=== PATIENT | male | born 1950 | race Caucasian/White ===

== ENCOUNTER 2021-07-11 14:41 | Inpatient (IN) | payer OTHER, SELFPAY ==
[~2021-07-11] VITALS: Ht 175.3 cm; Wt 86.2 kg
[2021-07-11 14:41] VITALS: BP_SYST 112
[2021-07-11 15:38] LABS: BASOPHILS % (AUTO) 0.7 % (0.0-2.0); HEMATOCRIT 44.7 % (36-54); HEMOGLOBIN 14.7 g/dL (14.0-18.0); LYMPHOCYTES # (AUTO) 0.2 K/uL (1.0-5.5); LYMPHOCYTES % (AUTO) 4.7 % (20.5-51.5); MEAN CORPUSCULAR HEMOGLOBIN 27 pg (27-31); MEAN CORPUSCULAR HGB CONC 33 % (32-36); MEAN CORPUSCULAR VOLUME 81 fL (79.0-98.0); MONOCYTES # (AUTO) 0.4 K/uL (0.0-1.0); MONOCYTES % (AUTO) 8.6 % (1.7-9.3); NEUTROPHILS # (AUTO) 4.4 K/uL (1.8-7.7); PLATELET COUNT (AUTO) 144 K/uL (130-430); RED BLOOD CELL COUNT(AUTO) 5.52 MIL/uL (4.2-6.2); RED CELL DISTRIBUTION WIDTH 14.6 % (9.0-15.0); WHITE BLOOD COUNT (AUTO) 5.1 K/uL (4.8-10.8)
[2021-07-11 16:02] LABS: ANION GAP 10 (5-15); CALCIUM 7.8 mg/dL (8.4-11.0); CHLORIDE 98 mmol/L (98-107); CREATININE 1.31 mg/dL (0.55-1.30); GLUCOSE 121 mg/dL (70-99); POTASSIUM 4.3 mmol/L (3.5-5.1); SODIUM SERUM 134 mmol/L (136-145); UREA NITROGEN, BLOOD 24 mg/dL (8-21)
[2021-07-11 16:07] LABS: ALANINE AMINOTRANSFERASE 93 U/L (12-78); ALBUMIN 2.7 g/dL (3.4-4.8); ASPARTATE AMINOTRANSFERASE 118 U/L (10-37); LIPASE 303 U/L (73-393); TOTAL BILIRUBIN 0.6 mg/dL (0.0-1.0)
[2021-07-11 16:08] LABS: ACETAMINOPHEN < 1 ug/mL (1-30); GFR AFRICAN AMERICAN 70 mL/min (>90)
[2021-07-11] MEDS ORDERED: cefTRIAXone 1 GM in D5W 50 ML IV ONE (16:15)
[2021-07-11] MEDS ORDERED: DOXYCYCLINE HYCLATE 100 MG in D5W 100 ML IV ONE (16:15)
[2021-07-11] MEDS ORDERED: cefTRIAXone 1 GM VIAL ONE (16:38)
[2021-07-11] MEDS ORDERED: DOXYCYCLINE HYCLATE 100 MG VIAL IV ONE (17:24)
[2021-07-11] MEDS ORDERED: DEXTROSE 50% JECT 50 ML DISP.SYRIN IVP PRN ×2 (22:30)
[2021-07-11] MEDS ORDERED: GLUCOSE (DEXTROSE) ORAL GEL -Adults PO PRN ×2 (22:30)
[2021-07-11] MEDS ORDERED: D5W 1,000 ML IV PRN ×2 (22:30)
[2021-07-11] MEDS ORDERED: HYDROcodone/ACETAMIN 10-325 MG TAB PO PRN (22:45)
[2021-07-11] MEDS ORDERED: HYDROcodone/ACETAMIN 5-325 MG TAB (NORCO/ VICODIN) PO PRN (22:45)
[2021-07-11] MEDS ORDERED: ACETAMINOPHEN 325 MG TABLET PO PRN (22:45)
[2021-07-11] MEDS ORDERED: LORazepam 2 MG/ML VIAL IVP PRN (22:45)
[2021-07-11] MEDS ORDERED: NALOXONE HCL 0.4 MG/ML AMP (NARCAN) IVP PRN ×2 (22:45)
[2021-07-11] MEDS ORDERED: AZITHROMYCIN 500 MG in NS 250 ML IV SCH ×2 (22:45→23:01)
[2021-07-11] MEDS ORDERED: ONDANSETRON HCL 4 MG/2 ML VIAL IVP PRN (22:45)
[2021-07-11] MEDS ORDERED: ALBUTEROL SULFATE 0.083% 2.5 MG/3 ML VIAL.NEB INH SCH (23:00)
[2021-07-11] MEDS ORDERED: IPRATROPIUM BROM 0.5 MG/2.5 ML VIAL.NEB (ATROVENT) INH SCH (23:00)
[2021-07-12] MEDS: D5/0.45 NS 1,000 ML IV SCH ×4 (01:08→21:22)
[2021-07-12 01:34] VITALS: BP_SYST 113
[2021-07-12 07:06] LABS: BILIRUBIN,URINE NEGATIVE (NEGATIVE); BLOOD, URINE NEGATIVE (NEGATIVE); CLARITY/URINE CLEAR (CLEAR); COLOR,URINE YELLOW (YELLOW); GLUCOSE,URINE NEGATIVE (NEGATIVE); KETONES,URINE NEGATIVE (NEGATIVE); LEUKOCYTE ESTERASE ,URINE NEGATIVE (NEGATIVE); NITRITE, URINE NEGATIVE (NEGATIVE); PH,URINE 5.5 (5.0-8.0); PROTEIN URINE 1+ (NEGATIVE); UROBILINOGEN,URINE 0.2 (0.2-1.0)
[2021-07-12] MEDS ORDERED: ALBUTEROL SULFATE 0.083% 2.5 MG/3 ML VIAL.NEB INH PRN (07:15)
[2021-07-12] MEDS ORDERED: IPRATROPIUM BROM 0.5 MG/2.5 ML VIAL.NEB (ATROVENT) INH PRN (07:15)
[2021-07-12 07:27] LABS: BARBITURATE, URINE NEGATIVE (NEG <=200); BENZODIAZEPINE, URINE NEGATIVE (NEG <=150); CANNABINOID, URINE NEGATIVE (NEG <=50); COCAINE, URINE NEGATIVE (NEG <=150); METHAMPHETAMINES SCREEN,URINE NEGATIVE (NEG <=500); OPIATE, URINE NEGATIVE (NEG <=100); PHENCYCLIDINE SCREEN,URINE NEGATIVE (NEG <=25); UR TRICYCLIC ANTIDEPRESSANTS NEGATIVE (NEG <=300); URINE AMPHETAMINE NEGATIVE (NEG <=500); URINE METHADONE NEGATIVE (NEG <=200); URINE OXYCODONE SCREEN NEGATIVE (NEG <=100); URINE PROPOXYPHENE SCREEN NEGATIVE (NEG <=300)
[2021-07-12] MEDS ORDERED: cefTRIAXone 1 GM IVPB PREMIX 50 ML IV ONE (08:43)
[2021-07-12] MEDS ORDERED: DOXYCYCLINE HYCLATE 100 MG VIAL IV ONE (08:44)
[2021-07-12] MEDS: cefTRIAXone 1 GM IVPB PREMIX 50 ML IV SCH (09:17)
[2021-07-12] MEDS: APIXABAN 2.5 MG TABLET PO SCH ×2 (09:19→21:00)
[2021-07-12] MEDS: DOXYCYCLINE HYCLATE 100 MG CAPSULE PO SCH ×2 (09:30→21:00)
[2021-07-12] MEDS ORDERED: DOXYCYCLINE HYCLATE 100 MG CAPSULE ONE (09:35)
[2021-07-12] MEDS: ALBUTEROL MDI INHALATION 8 GM INH INH SCH ×3 (11:00→20:38)
[2021-07-12] MEDS ORDERED: PROPOFOL DRIP 100 ML IV ONE (23:14)
[2021-07-12] MEDS ORDERED: SUCCINYLCHOLINE CHLORIDE 20 MG/ML(QUELICIN) IVP ONE (23:30)
[2021-07-12] MEDS ORDERED: ETOMIDATE 20 MG/ 10 ML VIAL (AMIDATE) IVP ONE (23:30)
[2021-07-13] VITALS (29 sets, daily range): BP systolic 67–157
[2021-07-13] MEDS ORDERED: MORPHINE SULFATE IN 0.9 % NACL 100 ML IV ONE (01:37)
[2021-07-13] MEDS ORDERED: NOREPINEPHRINE BITARTRATE 4 MG in NS 246 ML IV PRN (01:45)
[2021-07-13] MEDS ORDERED: NOREPINEPHRINE 4 MG/4 ML VIAL IV ONE (02:01)
[2021-07-13] MEDS: PROPOFOL DRIP 100 ML IV PRN ×4 (02:59→22:34)
[2021-07-13] MEDS: ALBUTEROL MDI INHALATION 8 GM INH INH SCH ×6 (03:00→20:20)
[2021-07-13] MEDS ORDERED: TOCILIZUMAB 600 MG in NS 100 ML IV ONE ×2 (03:30→10:00)
[2021-07-13 03:42] LABS: INR 1.1 (0.80-1.20); PROTHROMBIN TIME 11.3 SECS (9.5-12.5)
[2021-07-13] MEDS: DEXAMETHASONE SOD PHOSPHATE 10 MG/ML VIAL IVP SCH (04:38)
[2021-07-13 07:38] LABS: BASOPHILS % (AUTO) 0.2 % (0.0-2.0); HEMATOCRIT 40.6 % (36-54); HEMOGLOBIN 13.6 g/dL (14.0-18.0); LYMPHOCYTES # (AUTO) 0.3 K/uL (1.0-5.5); LYMPHOCYTES % (AUTO) 4.4 % (20.5-51.5); MEAN CORPUSCULAR HEMOGLOBIN 27 pg (27-31); MEAN CORPUSCULAR HGB CONC 34 % (32-36); MEAN CORPUSCULAR VOLUME 80 fL (79.0-98.0); MONOCYTES # (AUTO) 0.5 K/uL (0.0-1.0); NEUTROPHILS % (AUTO) 88.4 % (40.0-70.0); PLATELET COUNT (AUTO) 125 K/uL (130-430); RED BLOOD CELL COUNT(AUTO) 5.07 MIL/uL (4.2-6.2); RED CELL DISTRIBUTION WIDTH 15.1 % (9.0-15.0); WHITE BLOOD COUNT (AUTO) 6.8 K/uL (4.8-10.8)
[2021-07-13 07:49] LABS: CALCIUM 7.4 mg/dL (8.4-11.0); CREATININE 1.42 mg/dL (0.55-1.30); POTASSIUM 4.5 mmol/L (3.5-5.1)
[2021-07-13 08:04] LABS: ALBUMIN 2.4 g/dL (3.4-4.8); TOTAL BILIRUBIN 0.7 mg/dL (0.0-1.0)
[2021-07-13] MEDS: MORPHINE SULFATE IN 0.9 % NACL 100 ML IV PRN (09:31)
[2021-07-13] MEDS: cefTRIAXone 1 GM IVPB PREMIX 50 ML IV SCH (10:02)
[2021-07-13] MEDS: DOXYCYCLINE HYCLATE 100 MG CAPSULE PO SCH ×2 (10:03→21:30)
[2021-07-13] MEDS: APIXABAN 2.5 MG TABLET PO SCH ×2 (10:03→21:30)
[2021-07-13 11:00] LABS: C-REACTIVE PROTEIN QUANT 12.2 mg/dL (0-0.5)
[2021-07-13] MEDS: D5/0.45 NS 1,000 ML IV SCH (15:30)
[2021-07-14] VITALS (26 sets, daily range): BP systolic 91–158
[2021-07-14] MEDS: ALBUTEROL MDI INHALATION 8 GM INH INH SCH ×7 (00:15→23:20)
[2021-07-14] MEDS: D5/0.45 NS 1,000 ML IV SCH ×2 (02:30→20:21)
[2021-07-14] MEDS: DEXAMETHASONE SOD PHOSPHATE 10 MG/ML VIAL IVP SCH (03:30)
[2021-07-14] MEDS ORDERED: FUROSEMIDE 40 MG/4 ML VIAL IVP ONE (08:15)
[2021-07-14] MEDS: PROPOFOL DRIP 100 ML IV PRN ×3 (09:17→21:42)
[2021-07-14] MEDS: cefTRIAXone 1 GM IVPB PREMIX 50 ML IV SCH (09:24)
[2021-07-14 10:27] LABS: BASOPHILS % (AUTO) 0.1 % (0.0-2.0); HEMATOCRIT 40.6 % (36-54); HEMOGLOBIN 13.2 g/dL (14.0-18.0); LYMPHOCYTES # (AUTO) 0.2 K/uL (1.0-5.5); LYMPHOCYTES % (AUTO) 3.9 % (20.5-51.5); MEAN CORPUSCULAR HEMOGLOBIN 26 pg (27-31); MEAN CORPUSCULAR HGB CONC 33 % (32-36); MEAN CORPUSCULAR VOLUME 81 fL (79.0-98.0); MONOCYTES # (AUTO) 0.5 K/uL (0.0-1.0); MONOCYTES % (AUTO) 10.1 % (1.7-9.3); NEUTROPHILS # (AUTO) 4.5 K/uL (1.8-7.7); NEUTROPHILS % (AUTO) 85.9 % (40.0-70.0); PLATELET COUNT (AUTO) 106 K/uL (130-430); RED CELL DISTRIBUTION WIDTH 15.2 % (9.0-15.0); WHITE BLOOD COUNT (AUTO) 5.3 K/uL (4.8-10.8)
[2021-07-14 10:47] LABS: CALCIUM 7.2 mg/dL (8.4-11.0); CREATININE 2.32 mg/dL (0.55-1.30); POTASSIUM 4.7 mmol/L (3.5-5.1)
[2021-07-14 10:51] LABS: ALBUMIN 2.3 g/dL (3.4-4.8); C-REACTIVE PROTEIN QUANT 11.3 mg/dL (0-0.5); TOTAL BILIRUBIN 0.5 mg/dL (0.0-1.0)
[2021-07-14] MEDS: MORPHINE SULFATE IN 0.9 % NACL 100 ML IV PRN (11:55)
[2021-07-14] MEDS: APIXABAN 2.5 MG TABLET PO SCH ×2 (11:58→20:20)
[2021-07-14] MEDS: DOXYCYCLINE HYCLATE 100 MG CAPSULE PO SCH ×2 (11:59→20:20)
[2021-07-15] VITALS (30 sets, daily range): BP systolic 90–154
[2021-07-15] MEDS: ALBUTEROL MDI INHALATION 8 GM INH INH SCH ×3 (03:10→23:00)
[2021-07-15] MEDS: DEXAMETHASONE SOD PHOSPHATE 10 MG/ML VIAL IVP SCH (03:27)
[2021-07-15] MEDS: MORPHINE SULFATE IN 0.9 % NACL 100 ML IV PRN (05:26)
[2021-07-15] MEDS: D5/0.45 NS 1,000 ML IV SCH ×2 (05:55→19:25)
[2021-07-15 06:46] LABS: BASOPHILS % (AUTO) 0.2 % (0.0-2.0); HEMATOCRIT 40.6 % (36-54); HEMOGLOBIN 13.2 g/dL (14.0-18.0); LYMPHOCYTES # (AUTO) 0.4 K/uL (1.0-5.5); LYMPHOCYTES % (AUTO) 6.5 % (20.5-51.5); MEAN CORPUSCULAR HEMOGLOBIN 27 pg (27-31); MEAN CORPUSCULAR HGB CONC 33 % (32-36); MEAN CORPUSCULAR VOLUME 82 fL (79.0-98.0); MONOCYTES # (AUTO) 0.4 K/uL (0.0-1.0); MONOCYTES % (AUTO) 6.2 % (1.7-9.3); NEUTROPHILS # (AUTO) 5.3 K/uL (1.8-7.7); NEUTROPHILS % (AUTO) 87.1 % (40.0-70.0); PLATELET COUNT (AUTO) 125 K/uL (130-430); RED BLOOD CELL COUNT(AUTO) 4.95 MIL/uL (4.2-6.2); RED CELL DISTRIBUTION WIDTH 14.8 % (9.0-15.0); WHITE BLOOD COUNT (AUTO) 6.1 K/uL (4.8-10.8)
[2021-07-15 07:10] LABS: CALCIUM 7.3 mg/dL (8.4-11.0); CREATININE 2.24 mg/dL (0.55-1.30); POTASSIUM 4.5 mmol/L (3.5-5.1)
[2021-07-15 07:24] LABS: ALBUMIN 2.3 g/dL (3.4-4.8); TOTAL BILIRUBIN 0.4 mg/dL (0.0-1.0)
[2021-07-15 07:37] LABS: C-REACTIVE PROTEIN QUANT 6.9 mg/dL (0-0.5)
[2021-07-15] MEDS: cefTRIAXone 1 GM IVPB PREMIX 50 ML IV SCH (09:24)
[2021-07-15] MEDS: DOXYCYCLINE HYCLATE 100 MG CAPSULE PO SCH ×2 (09:24→21:16)
[2021-07-15] MEDS: PROPOFOL DRIP 100 ML IV PRN ×2 (09:24→22:50)
[2021-07-15] MEDS: APIXABAN 2.5 MG TABLET PO SCH ×2 (09:25→21:15)
[2021-07-15 09:38] LABS: CKMB RELATIVE INDEX 0.8 (0.0-2.9); CREATINE KINASE MB 9.5 ng/mL (0-3.6)
[2021-07-15 17:06] LABS: INR 1.6 (0.80-1.20); PROTHROMBIN TIME 16.4 SECS (9.5-12.5)
[2021-07-16] VITALS (30 sets, daily range): BP systolic 110–155
[2021-07-16] MEDS: D5/0.45 NS 1,000 ML IV SCH ×3 (02:04→20:48)
[2021-07-16] MEDS: DEXAMETHASONE SOD PHOSPHATE 10 MG/ML VIAL IVP SCH (02:04)
[2021-07-16] MEDS: ALBUTEROL MDI INHALATION 8 GM INH INH SCH ×4 (03:52→23:57)
[2021-07-16 06:54] LABS: BASOPHILS % (AUTO) 0.1 % (0.0-2.0); EOSINOPHILS % (AUTO) 0.1 % (0.0-4.0); HEMATOCRIT 38.5 % (36-54); HEMOGLOBIN 12.6 g/dL (14.0-18.0); LYMPHOCYTES # (AUTO) 0.3 K/uL (1.0-5.5); LYMPHOCYTES % (AUTO) 4.6 % (20.5-51.5); MEAN CORPUSCULAR HEMOGLOBIN 27 pg (27-31); MEAN CORPUSCULAR HGB CONC 33 % (32-36); MEAN CORPUSCULAR VOLUME 82 fL (79.0-98.0); MONOCYTES # (AUTO) 0.6 K/uL (0.0-1.0); MONOCYTES % (AUTO) 8.5 % (1.7-9.3); NEUTROPHILS # (AUTO) 5.7 K/uL (1.8-7.7); NEUTROPHILS % (AUTO) 86.7 % (40.0-70.0); PLATELET COUNT (AUTO) 129 K/uL (130-430); RED BLOOD CELL COUNT(AUTO) 4.71 MIL/uL (4.2-6.2); RED CELL DISTRIBUTION WIDTH 15.1 % (9.0-15.0); WHITE BLOOD COUNT (AUTO) 6.6 K/uL (4.8-10.8)
[2021-07-16 06:58] LABS: CALCIUM 7.4 mg/dL (8.4-11.0); CREATININE 1.88 mg/dL (0.55-1.30); POTASSIUM 4.7 mmol/L (3.5-5.1)
[2021-07-16 07:04] LABS: ALBUMIN 2.3 g/dL (3.4-4.8); TOTAL BILIRUBIN 0.6 mg/dL (0.0-1.0)
[2021-07-16] MEDS: cefTRIAXone 1 GM IVPB PREMIX 50 ML IV SCH (08:04)
[2021-07-16] MEDS: DOXYCYCLINE HYCLATE 100 MG CAPSULE PO SCH ×2 (08:04→20:47)
[2021-07-16] MEDS: APIXABAN 2.5 MG TABLET PO SCH ×2 (08:05→20:47)
[2021-07-16] MEDS: PROPOFOL DRIP 100 ML IV PRN ×2 (08:08→22:15)
[2021-07-16 09:08] LABS: C-REACTIVE PROTEIN QUANT 2.9 mg/dL (0-0.5)
[2021-07-16] MEDS: MORPHINE SULFATE IN 0.9 % NACL 100 ML IV PRN (10:00)
[2021-07-17] VITALS (30 sets, daily range): BP systolic 101–147
[2021-07-17] MEDS: ALBUTEROL MDI INHALATION 8 GM INH INH SCH ×6 (03:57→23:25)
[2021-07-17] MEDS: DEXAMETHASONE SOD PHOSPHATE 10 MG/ML VIAL IVP SCH (04:32)
[2021-07-17 06:52] LABS: BASOPHILS % (AUTO) 0.1 % (0.0-2.0); HEMATOCRIT 40.5 % (36-54); LYMPHOCYTES # (AUTO) 0.4 K/uL (1.0-5.5); MEAN CORPUSCULAR HEMOGLOBIN 26 pg (27-31); MEAN CORPUSCULAR HGB CONC 32 % (32-36); MEAN CORPUSCULAR VOLUME 82 fL (79.0-98.0); MONOCYTES # (AUTO) 0.5 K/uL (0.0-1.0); MONOCYTES % (AUTO) 6.2 % (1.7-9.3); NEUTROPHILS # (AUTO) 7.8 K/uL (1.8-7.7); NEUTROPHILS % (AUTO) 88.7 % (40.0-70.0); PLATELET COUNT (AUTO) 132 K/uL (130-430); RED BLOOD CELL COUNT(AUTO) 4.95 MIL/uL (4.2-6.2); RED CELL DISTRIBUTION WIDTH 14.9 % (9.0-15.0); WHITE BLOOD COUNT (AUTO) 8.8 K/uL (4.8-10.8)
[2021-07-17 07:41] LABS: CREATININE 1.62 mg/dL (0.55-1.30); POTASSIUM 4.9 mmol/L (3.5-5.1)
[2021-07-17 07:46] LABS: ALBUMIN 2.3 g/dL (3.4-4.8); TOTAL BILIRUBIN 0.9 mg/dL (0.0-1.0)
[2021-07-17] MEDS: D5/0.45 NS 1,000 ML IV SCH ×2 (09:23→19:15)
[2021-07-17] MEDS: PROPOFOL DRIP 100 ML IV PRN ×2 (09:28→19:20)
[2021-07-17] MEDS: DOXYCYCLINE HYCLATE 100 MG CAPSULE PO SCH ×2 (09:33→20:54)
[2021-07-17] MEDS: APIXABAN 2.5 MG TABLET PO SCH ×2 (09:34→20:53)
[2021-07-17] MEDS: cefTRIAXone 1 GM IVPB PREMIX 50 ML IV SCH (09:59)
[2021-07-17 12:54] LABS: C-REACTIVE PROTEIN QUANT 1.2 mg/dL (0-0.5)
[2021-07-17] MEDS: MORPHINE SULFATE IN 0.9 % NACL 100 ML IV PRN (14:53)
[2021-07-17] MEDS: MIDAZOLAM IN NACL,ISO-OSMOT/PF 100 ML IV PRN (20:56)
[2021-07-18] VITALS (29 sets, daily range): BP systolic 105–125
[2021-07-18] MEDS: DEXAMETHASONE SOD PHOSPHATE 10 MG/ML VIAL IVP SCH (02:38)
[2021-07-18] MEDS: ALBUTEROL MDI INHALATION 8 GM INH INH SCH ×5 (03:39→23:00)
[2021-07-18] MEDS: D5/0.45 NS 1,000 ML IV SCH ×2 (04:26→15:46)
[2021-07-18 07:05] LABS: BASOPHILS % (AUTO) 0.1 % (0.0-2.0); EOSINOPHILS % (AUTO) 0.5 % (0.0-4.0); HEMATOCRIT 39.1 % (36-54); HEMOGLOBIN 12.7 g/dL (14.0-18.0); LYMPHOCYTES # (AUTO) 0.6 K/uL (1.0-5.5); LYMPHOCYTES % (AUTO) 7.2 % (20.5-51.5); MEAN CORPUSCULAR HEMOGLOBIN 27 pg (27-31); MEAN CORPUSCULAR HGB CONC 32 % (32-36); MEAN CORPUSCULAR VOLUME 82 fL (79.0-98.0); MONOCYTES # (AUTO) 0.5 K/uL (0.0-1.0); MONOCYTES % (AUTO) 6.2 % (1.7-9.3); PLATELET COUNT (AUTO) 118 K/uL (130-430); RED BLOOD CELL COUNT(AUTO) 4.77 MIL/uL (4.2-6.2); RED CELL DISTRIBUTION WIDTH 15.1 % (9.0-15.0); WHITE BLOOD COUNT (AUTO) 8.1 K/uL (4.8-10.8)
[2021-07-18 07:32] LABS: ALBUMIN 2.3 g/dL (3.4-4.8); CALCIUM 8.3 mg/dL (8.4-11.0); CREATININE 1.61 mg/dL (0.55-1.30); POTASSIUM 5.1 mmol/L (3.5-5.1); TOTAL BILIRUBIN 0.8 mg/dL (0.0-1.0)
[2021-07-18] MEDS: APIXABAN 2.5 MG TABLET PO SCH ×2 (09:17→21:32)
[2021-07-18] MEDS: DOXYCYCLINE HYCLATE 100 MG CAPSULE PO SCH ×2 (09:17→21:18)
[2021-07-18] MEDS: cefTRIAXone 1 GM IVPB PREMIX 50 ML IV SCH (09:18)
[2021-07-18] MEDS ORDERED: SODIUM POLYSTYRENE SULFONATE 15 GM/60 ML UDBTL PO ONE (09:45)
[2021-07-18] MEDS: PROPOFOL DRIP 100 ML IV PRN ×3 (10:43→21:32)
[2021-07-18] MEDS: MORPHINE SULFATE IN 0.9 % NACL 100 ML IV PRN (15:43)
[2021-07-18] MEDS: MIDAZOLAM IN NACL,ISO-OSMOT/PF 100 ML IV PRN (15:44)
[2021-07-19] VITALS (30 sets, daily range): BP systolic 96–133
[2021-07-19] MEDS: D5/0.45 NS 1,000 ML IV SCH ×3 (02:08→20:47)
[2021-07-19] MEDS: PROPOFOL DRIP 100 ML IV PRN ×4 (02:08→16:45)
[2021-07-19] MEDS: DEXAMETHASONE SOD PHOSPHATE 10 MG/ML VIAL IVP SCH (03:00)
[2021-07-19] MEDS: ALBUTEROL MDI INHALATION 8 GM INH INH SCH ×5 (04:23→19:00)
[2021-07-19 06:21] LABS: BASOPHILS % (AUTO) 0.5 % (0.0-2.0); EOSINOPHILS % (AUTO) 0.3 % (0.0-4.0); HEMATOCRIT 38.6 % (36-54); HEMOGLOBIN 12.4 g/dL (14.0-18.0); LYMPHOCYTES # (AUTO) 0.5 K/uL (1.0-5.5); LYMPHOCYTES % (AUTO) 5.9 % (20.5-51.5); MEAN CORPUSCULAR HEMOGLOBIN 27 pg (27-31); MEAN CORPUSCULAR HGB CONC 32 % (32-36); MEAN CORPUSCULAR VOLUME 83 fL (79.0-98.0); MONOCYTES # (AUTO) 0.5 K/uL (0.0-1.0); MONOCYTES % (AUTO) 6.2 % (1.7-9.3); NEUTROPHILS # (AUTO) 7.4 K/uL (1.8-7.7); NEUTROPHILS % (AUTO) 87.1 % (40.0-70.0); PLATELET COUNT (AUTO) 115 K/uL (130-430); RED BLOOD CELL COUNT(AUTO) 4.67 MIL/uL (4.2-6.2); RED CELL DISTRIBUTION WIDTH 15.2 % (9.0-15.0); WHITE BLOOD COUNT (AUTO) 8.5 K/uL (4.8-10.8)
[2021-07-19 06:58] LABS: ALBUMIN 2.2 g/dL (3.4-4.8); CALCIUM 8.2 mg/dL (8.4-11.0); CREATININE 1.66 mg/dL (0.55-1.30); POTASSIUM 5.5 mmol/L (3.5-5.1); TOTAL BILIRUBIN 0.5 mg/dL (0.0-1.0)
[2021-07-19] MEDS: MORPHINE SULFATE IN 0.9 % NACL 100 ML IV PRN (08:48)
[2021-07-19] MEDS: MIDAZOLAM IN NACL,ISO-OSMOT/PF 100 ML IV PRN (08:49)
[2021-07-19] MEDS: APIXABAN 2.5 MG TABLET PO SCH ×2 (08:50→21:44)
[2021-07-19] MEDS: DOXYCYCLINE HYCLATE 100 MG CAPSULE PO SCH ×2 (09:20→21:42)
[2021-07-19] MEDS ORDERED: THEOPHYLLINE ANHYDROUS 200 MG TAB.SR.12H PO ONE (14:00)
[2021-07-19] MEDS ORDERED: THEOPHYLLINE ANHYDROUS 80 MG/15 ML UDC NG ONE (15:15)
[2021-07-19] MEDS ORDERED: SODIUM POLYSTYRENE SULFONATE 15 GM/60 ML UDBTL PO ONE (20:15)
[2021-07-19] MEDS: THEOPHYLLINE ANHYDROUS 80 MG/15 ML UDC NG SCH (21:41)
[2021-07-20] VITALS (28 sets, daily range): BP systolic 90–122
[2021-07-20] MEDS ORDERED: NOREPINEPHRINE 4 MG/4 ML VIAL IV ONE (02:42)
[2021-07-20] MEDS: DEXAMETHASONE SOD PHOSPHATE 10 MG/ML VIAL IVP SCH (02:53)
[2021-07-20] MEDS: D5/0.45 NS 1,000 ML IV SCH ×4 (05:44→19:05)
[2021-07-20] MEDS: PROPOFOL DRIP 100 ML IV PRN ×3 (08:45→17:56)
[2021-07-20] MEDS: APIXABAN 2.5 MG TABLET PO SCH (09:00)
[2021-07-20] MEDS: THEOPHYLLINE ANHYDROUS 80 MG/15 ML UDC NG SCH ×2 (09:41→21:30)
[2021-07-20] MEDS: DOXYCYCLINE HYCLATE 100 MG CAPSULE PO SCH ×2 (09:42→21:30)
[2021-07-20 11:36] LABS: BASOPHILS # (AUTO) 0.2 K/uL (0.0-0.2); BASOPHILS % (AUTO) 2.9 % (0.0-2.0); EOSINOPHILS % (AUTO) 0.2 % (0.0-4.0); HEMATOCRIT 38.9 % (36-54); HEMOGLOBIN 12.4 g/dL (14.0-18.0); LYMPHOCYTES # (AUTO) 0.4 K/uL (1.0-5.5); LYMPHOCYTES % (AUTO) 5.4 % (20.5-51.5); MEAN CORPUSCULAR HEMOGLOBIN 27 pg (27-31); MEAN CORPUSCULAR HGB CONC 32 % (32-36); MEAN CORPUSCULAR VOLUME 84 fL (79.0-98.0); MONOCYTES # (AUTO) 0.1 K/uL (0.0-1.0); MONOCYTES % (AUTO) 1.8 % (1.7-9.3); NEUTROPHILS # (AUTO) 6.9 K/uL (1.8-7.7); NEUTROPHILS % (AUTO) 89.7 % (40.0-70.0); RED BLOOD CELL COUNT(AUTO) 4.65 MIL/uL (4.2-6.2); RED CELL DISTRIBUTION WIDTH 15.5 % (9.0-15.0)
[2021-07-20 11:46] LABS: CREATININE 1.92 mg/dL (0.55-1.30); PHOSPHORUS 8.1 mg/dL (2.7-4.5)
[2021-07-20 11:57] LABS: WHITE BLOOD COUNT (AUTO) 7.7 K/uL (4.8-10.8)
[2021-07-20 12:25] LABS: PLATELET COUNT (AUTO) 85 K/uL (130-430)
[2021-07-20] MEDS ORDERED: SODIUM POLYSTYRENE SULFONATE 15 GM/60 ML UDBTL GT ONE (13:30)
[2021-07-20] MEDS ORDERED: 0.45% NACL 1,000 ML IV SCH (14:00)
[2021-07-20] MEDS ORDERED: FUROSEMIDE 40 MG/4 ML VIAL IVP ONE ×2 (14:30→18:00)
[2021-07-20 17:20] LABS: CREATININE 2.09 mg/dL (0.55-1.30)
[2021-07-20 17:36] LABS: POTASSIUM 6.8 mmol/L (3.5-5.1)
[2021-07-20] MEDS ORDERED: ALBUMIN HUMAN 25% 100 ML IV ONE ×2 (18:00→18:43)
[2021-07-20] MEDS: CALCIUM ACETATE 667 MG CAP PO SCH (18:45)
[2021-07-20] MEDS: ALBUTEROL MDI INHALATION 8 GM INH INH SCH (20:25)
[2021-07-20 23:32] LABS: CREATININE 2.21 mg/dL (0.55-1.30)
[2021-07-20 23:38] LABS: POTASSIUM 6.3 mmol/L (3.5-5.1)
[2021-07-21] VITALS (29 sets, daily range): BP systolic 94–140
[2021-07-21] MEDS: ALBUTEROL MDI INHALATION 8 GM INH INH SCH ×7 (01:32→23:50)
[2021-07-21] MEDS: PROPOFOL DRIP 100 ML IV PRN ×3 (02:43→12:46)
[2021-07-21] MEDS: DEXAMETHASONE SOD PHOSPHATE 10 MG/ML VIAL IVP SCH (03:00)
[2021-07-21] MEDS: MIDAZOLAM IN NACL,ISO-OSMOT/PF 100 ML IV PRN (03:15)
[2021-07-21] MEDS: CALCIUM ACETATE 667 MG CAP PO SCH ×3 (08:00→16:30)
[2021-07-21 09:00] LABS: BASOPHILS % (AUTO) 0.2 % (0.0-2.0); EOSINOPHILS # (AUTO) 0.1 K/uL (0.0-0.4); EOSINOPHILS % (AUTO) 0.9 % (0.0-4.0); HEMATOCRIT 35.7 % (36-54); HEMOGLOBIN 11.4 g/dL (14.0-18.0); LYMPHOCYTES # (AUTO) 0.4 K/uL (1.0-5.5); LYMPHOCYTES % (AUTO) 3.7 % (20.5-51.5); MEAN CORPUSCULAR HEMOGLOBIN 27 pg (27-31); MEAN CORPUSCULAR HGB CONC 32 % (32-36); MEAN CORPUSCULAR VOLUME 83 fL (79.0-98.0); MONOCYTES # (AUTO) 0.5 K/uL (0.0-1.0); MONOCYTES % (AUTO) 4.9 % (1.7-9.3); NEUTROPHILS # (AUTO) 9.2 K/uL (1.8-7.7); NEUTROPHILS % (AUTO) 90.3 % (40.0-70.0); PLATELET COUNT (AUTO) 87 K/uL (130-430); RED CELL DISTRIBUTION WIDTH 15.6 % (9.0-15.0); WHITE BLOOD COUNT (AUTO) 10.2 K/uL (4.8-10.8)
[2021-07-21] MEDS: THEOPHYLLINE ANHYDROUS 80 MG/15 ML UDC NG SCH ×2 (09:48→21:20)
[2021-07-21] MEDS: DOXYCYCLINE HYCLATE 100 MG CAPSULE PO SCH ×2 (09:48→21:19)
[2021-07-21] MEDS: D5/0.45 NS 1,000 ML IV SCH ×2 (11:33)
[2021-07-21 12:54] LABS: INR 1.6 (0.80-1.20); PROTHROMBIN TIME 15.5 SECS (9.5-12.5)
[2021-07-21 13:36] LABS: CALCIUM 8.1 mg/dL (8.4-11.0); CREATININE 2.47 mg/dL (0.55-1.30); POTASSIUM 6.1 mmol/L (3.5-5.1)
[2021-07-21 13:37] LABS: ALBUMIN 2.4 g/dL (3.4-4.8); TOTAL BILIRUBIN 0.5 mg/dL (0.0-1.0)
[2021-07-21] MEDS ORDERED: SODIUM POLYSTYRENE SULFONATE 15 GM/60 ML UDBTL PO ONE (19:45)
[2021-07-21] MEDS ORDERED: SODIUM POLYSTYRENE SULFONATE 15 GM/60 ML UDBTL ONE (20:56)
[2021-07-21] MEDS ORDERED: APIXABAN 2.5 MG TABLET PO SCH (23:45)
[2021-07-21] MEDS ORDERED: APIXABAN 2.5 MG TABLET ONE (23:58)
[2021-07-22] VITALS (23 sets, daily range): BP systolic 117–146
[2021-07-22] MEDS: MIDAZOLAM IN NACL,ISO-OSMOT/PF 100 ML IV PRN (00:51)
[2021-07-22] MEDS: PROPOFOL DRIP 100 ML IV PRN ×2 (00:57→10:35)
[2021-07-22] MEDS ORDERED: SODIUM PHOSPHATE,MONO-DIBASIC 133 ML ENEMA RC ONE (03:30)
[2021-07-22] MEDS: DEXAMETHASONE SOD PHOSPHATE 10 MG/ML VIAL IVP SCH (03:41)
[2021-07-22] MEDS: ALBUTEROL MDI INHALATION 8 GM INH INH SCH ×3 (04:01→23:32)
[2021-07-22 05:39] LABS: MEAN CORPUSCULAR HGB CONC 32 % (32-36); RED BLOOD CELL COUNT(AUTO) 4.16 MIL/uL (4.2-6.2)
[2021-07-22 05:44] LABS: BASOPHILS # (AUTO) 0.1 K/uL (0.0-0.2); BASOPHILS % (AUTO) 0.6 % (0.0-2.0); EOSINOPHILS # (AUTO) 0.1 K/uL (0.0-0.4); EOSINOPHILS % (AUTO) 0.5 % (0.0-4.0); HEMATOCRIT 34.2 % (36-54); LYMPHOCYTES # (AUTO) 0.5 K/uL (1.0-5.5); LYMPHOCYTES % (AUTO) 4.8 % (20.5-51.5); MEAN CORPUSCULAR HEMOGLOBIN 26 pg (27-31); MEAN CORPUSCULAR VOLUME 82 fL (79.0-98.0); MONOCYTES # (AUTO) 0.9 K/uL (0.0-1.0); MONOCYTES % (AUTO) 7.8 % (1.7-9.3); NEUTROPHILS # (AUTO) 9.8 K/uL (1.8-7.7); NEUTROPHILS % (AUTO) 86.3 % (40.0-70.0); PLATELET COUNT (AUTO) 87 K/uL (130-430); RED CELL DISTRIBUTION WIDTH 15.4 % (9.0-15.0); WHITE BLOOD COUNT (AUTO) 11.3 K/uL (4.8-10.8)
[2021-07-22 06:02] LABS: ALBUMIN 2.5 g/dL (3.4-4.8); PHOSPHORUS 5.2 mg/dL (2.7-4.5); TOTAL BILIRUBIN 0.5 mg/dL (0.0-1.0)
[2021-07-22 06:06] LABS: CALCIUM 8.1 mg/dL (8.4-11.0); POTASSIUM 5.9 mmol/L (3.5-5.1)
[2021-07-22 06:07] LABS: CREATININE 2.21 mg/dL (0.55-1.30)
[2021-07-22] MEDS ORDERED: SODIUM POLYSTYRENE SULFONATE 15 GM/60 ML UDBTL GT ONE (07:30)
[2021-07-22] MEDS ORDERED: DOCUSATE SODIUM 100 MG/10 ML UDC NG SCH (09:00)
[2021-07-22] MEDS: CALCIUM ACETATE 667 MG CAP PO SCH ×3 (10:18→18:52)
[2021-07-22] MEDS: DOXYCYCLINE HYCLATE 100 MG CAPSULE PO SCH ×2 (10:19→21:00)
[2021-07-22] MEDS: DOCUSATE SODIUM 100 MG/10 ML UDC NG SCH ×2 (10:19→21:00)
[2021-07-22] MEDS: CHOLECALCIFEROL (VITAMIN D3) 2,000 UNIT TABLET NG SCH (10:20)
[2021-07-22] MEDS: D5/0.45 NS 1,000 ML IV SCH (10:53)
[2021-07-22] MEDS: THEOPHYLLINE ANHYDROUS 80 MG/15 ML UDC NG SCH ×2 (11:42→21:00)
[2021-07-22] MEDS: ASCORBIC ACID 500 MG TABLET NG SCH ×2 (11:43→21:00)
[2021-07-23] VITALS (30 sets, daily range): BP systolic 85–171
[2021-07-23] MEDS: D5/0.45 NS 1,000 ML IV SCH ×2 (02:15→12:38)
[2021-07-23] MEDS: DEXAMETHASONE SOD PHOSPHATE 10 MG/ML VIAL IVP SCH (03:00)
[2021-07-23] MEDS: ALBUTEROL MDI INHALATION 8 GM INH INH SCH ×5 (04:04→19:00)
[2021-07-23 05:57] LABS: BASOPHILS # (AUTO) 0.1 K/uL (0.0-0.2); BASOPHILS % (AUTO) 0.8 % (0.0-2.0); EOSINOPHILS # (AUTO) 0.1 K/uL (0.0-0.4); EOSINOPHILS % (AUTO) 0.4 % (0.0-4.0); HEMATOCRIT 34.3 % (36-54); HEMOGLOBIN 11.2 g/dL (14.0-18.0); LYMPHOCYTES # (AUTO) 0.8 K/uL (1.0-5.5); LYMPHOCYTES % (AUTO) 6.2 % (20.5-51.5); MEAN CORPUSCULAR HEMOGLOBIN 27 pg (27-31); MEAN CORPUSCULAR HGB CONC 33 % (32-36); MEAN CORPUSCULAR VOLUME 83 fL (79.0-98.0); MONOCYTES % (AUTO) 7.5 % (1.7-9.3); NEUTROPHILS % (AUTO) 85.1 % (40.0-70.0); PLATELET COUNT (AUTO) 96 K/uL (130-430); RED BLOOD CELL COUNT(AUTO) 4.15 MIL/uL (4.2-6.2); RED CELL DISTRIBUTION WIDTH 15.1 % (9.0-15.0); WHITE BLOOD COUNT (AUTO) 12.9 K/uL (4.8-10.8)
[2021-07-23 06:50] LABS: ALBUMIN 2.6 g/dL (3.4-4.8); CALCIUM 7.9 mg/dL (8.4-11.0); CREATININE 1.96 mg/dL (0.55-1.30); POTASSIUM 5.5 mmol/L (3.5-5.1); TOTAL BILIRUBIN 0.8 mg/dL (0.0-1.0)
[2021-07-23] MEDS ORDERED: NALOXONE HCL 0.4 MG/ML AMP (NARCAN) IVP PRN (08:30)
[2021-07-23] MEDS: DOCUSATE SODIUM 100 MG/10 ML UDC NG SCH ×2 (09:21→21:00)
[2021-07-23] MEDS: CHOLECALCIFEROL (VITAMIN D3) 2,000 UNIT TABLET NG SCH (09:21)
[2021-07-23] MEDS: CALCIUM ACETATE 667 MG CAP PO SCH ×3 (09:21→17:23)
[2021-07-23] MEDS: DOXYCYCLINE HYCLATE 100 MG CAPSULE PO SCH (09:21)
[2021-07-23] MEDS: ASCORBIC ACID 500 MG TABLET NG SCH (09:22)
[2021-07-23] MEDS: MORPHINE SULFATE IN 0.9 % NACL 100 ML IV PRN (09:23)
[2021-07-23] MEDS: THEOPHYLLINE ANHYDROUS 80 MG/15 ML UDC NG SCH (09:26)
[2021-07-23] MEDS ORDERED: METOCLOPRAMIDE HCL 10 MG/2 ML VIAL IVP SCH (09:45)
[2021-07-23] MEDS: METOCLOPRAMIDE HCL 10 MG/2 ML VIAL IVP SCH ×2 (12:16→17:23)
[2021-07-23] MEDS: MIDAZOLAM IN NACL,ISO-OSMOT/PF 100 ML IV PRN (17:24)
[2021-07-23] MEDS: PROPOFOL DRIP 100 ML IV PRN (17:26)
[2021-07-24] VITALS (30 sets, daily range): BP systolic 93–138
[2021-07-24] MEDS: DEXAMETHASONE SOD PHOSPHATE 10 MG/ML VIAL IVP SCH (03:00)
[2021-07-24] MEDS ORDERED: SODIUM BICARBONATE 8.4% JECT 50 MEQ/50 ML SYRINGE ONE ×2 (04:33)
[2021-07-24] MEDS: ALBUTEROL MDI INHALATION 8 GM INH INH SCH (04:38)
[2021-07-24] MEDS: METOCLOPRAMIDE HCL 10 MG/2 ML VIAL IVP SCH ×4 (06:00→18:05)
[2021-07-24 07:20] LABS: BASOPHILS # (AUTO) 0.1 K/uL (0.0-0.2); BASOPHILS % (AUTO) 0.4 % (0.0-2.0); EOSINOPHILS # (AUTO) 0.1 K/uL (0.0-0.4); EOSINOPHILS % (AUTO) 0.4 % (0.0-4.0); HEMATOCRIT 32.6 % (36-54); HEMOGLOBIN 10.4 g/dL (14.0-18.0); LYMPHOCYTES # (AUTO) 0.8 K/uL (1.0-5.5); LYMPHOCYTES % (AUTO) 4.7 % (20.5-51.5); MEAN CORPUSCULAR HEMOGLOBIN 27 pg (27-31); MEAN CORPUSCULAR HGB CONC 32 % (32-36); MEAN CORPUSCULAR VOLUME 84 fL (79.0-98.0); MONOCYTES # (AUTO) 0.9 K/uL (0.0-1.0); NEUTROPHILS # (AUTO) 15.8 K/uL (1.8-7.7); NEUTROPHILS % (AUTO) 89.5 % (40.0-70.0); PLATELET COUNT (AUTO) 56 K/uL (130-430); RED BLOOD CELL COUNT(AUTO) 3.88 MIL/uL (4.2-6.2); RED CELL DISTRIBUTION WIDTH 15.1 % (9.0-15.0); WHITE BLOOD COUNT (AUTO) 17.7 K/uL (4.8-10.8)
[2021-07-24 08:11] LABS: ALBUMIN 2.2 g/dL (3.4-4.8); CALCIUM 7.6 mg/dL (8.4-11.0); CREATININE 2.41 mg/dL (0.55-1.30); TOTAL BILIRUBIN 1.2 mg/dL (0.0-1.0)
[2021-07-24] MEDS: CALCIUM ACETATE 667 MG CAP PO SCH ×3 (09:29→18:05)
[2021-07-24] MEDS: D5/0.45 NS 1,000 ML IV SCH (09:29)
[2021-07-24] MEDS: CHOLECALCIFEROL (VITAMIN D3) 2,000 UNIT TABLET NG SCH (09:29)
[2021-07-24] MEDS: PROPOFOL DRIP 100 ML IV PRN (09:31)
[2021-07-24] MEDS: MIDAZOLAM IN NACL,ISO-OSMOT/PF 100 ML IV PRN (09:32)
[2021-07-24] MEDS: THEOPHYLLINE ANHYDROUS 80 MG/15 ML UDC NG SCH ×2 (09:48→21:00)
[2021-07-24] MEDS: DOXYCYCLINE HYCLATE 100 MG CAPSULE PO SCH ×2 (09:48→21:00)
[2021-07-24] MEDS: ASCORBIC ACID 500 MG TABLET NG SCH ×2 (09:48→21:00)
[2021-07-24] MEDS: DOCUSATE SODIUM 100 MG/10 ML UDC NG SCH ×2 (09:49→21:00)
[2021-07-24] MEDS: cefTRIAXone 1 GM IVPB PREMIX 50 ML IV SCH (10:38)
[2021-07-24 10:52] LABS: POTASSIUM 6.4 mmol/L (3.5-5.1)
[2021-07-24] MEDS ORDERED: VECURONIUM BROMIDE 50 MG in NS 50 ML IV PRN (11:30)
[2021-07-24] MEDS ORDERED: SODIUM POLYSTYRENE SULFONATE 15 GM/60 ML UDBTL PO ONE (12:45)
[2021-07-24] MEDS: NACL 0.9% 1,000 ML IV SCH (13:18)
[2021-07-25] VITALS (29 sets, daily range): BP systolic 97–125
[2021-07-25] MEDS: ALBUTEROL MDI INHALATION 8 GM INH INH SCH ×2 (00:34→20:51)
[2021-07-25] MEDS: NACL 0.9% 1,000 ML IV SCH ×2 (03:09→15:24)
[2021-07-25] MEDS: DEXAMETHASONE SOD PHOSPHATE 10 MG/ML VIAL IVP SCH (03:10)
[2021-07-25] MEDS: METOCLOPRAMIDE HCL 10 MG/2 ML VIAL IVP SCH ×4 (06:08→18:07)
[2021-07-25 07:16] LABS: BASOPHILS # (AUTO) 0.1 K/uL (0.0-0.2); BASOPHILS % (AUTO) 0.8 % (0.0-2.0); EOSINOPHILS # (AUTO) 0.1 K/uL (0.0-0.4); EOSINOPHILS % (AUTO) 0.7 % (0.0-4.0); HEMOGLOBIN 9.9 g/dL (14.0-18.0); LYMPHOCYTES # (AUTO) 0.7 K/uL (1.0-5.5); MEAN CORPUSCULAR HEMOGLOBIN 27 pg (27-31); MEAN CORPUSCULAR HGB CONC 32 % (32-36); MEAN CORPUSCULAR VOLUME 83 fL (79.0-98.0); MONOCYTES # (AUTO) 0.6 K/uL (0.0-1.0); MONOCYTES % (AUTO) 4.8 % (1.7-9.3); NEUTROPHILS # (AUTO) 10.4 K/uL (1.8-7.7); NEUTROPHILS % (AUTO) 87.7 % (40.0-70.0); PLATELET COUNT (AUTO) 60 K/uL (130-430); RED BLOOD CELL COUNT(AUTO) 3.72 MIL/uL (4.2-6.2); RED CELL DISTRIBUTION WIDTH 15.5 % (9.0-15.0); WHITE BLOOD COUNT (AUTO) 11.8 K/uL (4.8-10.8)
[2021-07-25 07:45] LABS: ALBUMIN 2.1 g/dL (3.4-4.8); CALCIUM 7.8 mg/dL (8.4-11.0); CREATININE 1.94 mg/dL (0.55-1.30); POTASSIUM 4.3 mmol/L (3.5-5.1); TOTAL BILIRUBIN 0.8 mg/dL (0.0-1.0)
[2021-07-25] MEDS: DOCUSATE SODIUM 100 MG/10 ML UDC NG SCH ×2 (08:59→21:00)
[2021-07-25] MEDS: ASCORBIC ACID 500 MG TABLET NG SCH ×2 (08:59→21:00)
[2021-07-25] MEDS: DOXYCYCLINE HYCLATE 100 MG CAPSULE PO SCH ×2 (08:59→21:00)
[2021-07-25] MEDS: CHOLECALCIFEROL (VITAMIN D3) 2,000 UNIT TABLET NG SCH (08:59)
[2021-07-25] MEDS: CALCIUM ACETATE 667 MG CAP PO SCH ×3 (08:59→18:07)
[2021-07-25] MEDS: cefTRIAXone 1 GM IVPB PREMIX 50 ML IV SCH (09:00)
[2021-07-25] MEDS: THEOPHYLLINE ANHYDROUS 80 MG/15 ML UDC NG SCH ×2 (09:13→21:00)
[2021-07-26] VITALS (18 sets, daily range): BP systolic 98–128
[2021-07-26] MEDS: METOCLOPRAMIDE HCL 10 MG/2 ML VIAL IVP SCH ×3 (00:19→17:42)
[2021-07-26] MEDS: ALBUTEROL MDI INHALATION 8 GM INH INH SCH ×6 (03:43→23:00)
[2021-07-26] MEDS: NACL 0.9% 1,000 ML IV SCH (04:45)
[2021-07-26] MEDS: DOXYCYCLINE HYCLATE 100 MG CAPSULE PO SCH ×2 (09:30→21:00)
[2021-07-26] MEDS: ASCORBIC ACID 500 MG TABLET NG SCH ×2 (09:30→21:00)
[2021-07-26] MEDS: CALCIUM ACETATE 667 MG CAP PO SCH ×3 (09:30→17:42)
[2021-07-26] MEDS: CHOLECALCIFEROL (VITAMIN D3) 2,000 UNIT TABLET NG SCH (09:30)
[2021-07-26] MEDS: DOCUSATE SODIUM 100 MG/10 ML UDC NG SCH ×2 (09:30→21:00)
[2021-07-26] MEDS: PROPOFOL DRIP 100 ML IV PRN ×2 (10:30→16:11)
[2021-07-26] MEDS: THEOPHYLLINE ANHYDROUS 80 MG/15 ML UDC NG SCH ×2 (10:58→21:00)
[2021-07-26] MEDS: PIPERACILLIN/TAZO 2.25G/DEX-IS 50 ML IV SCH ×2 (12:07→17:43)
[2021-07-26] MEDS: MIDAZOLAM IN NACL,ISO-OSMOT/PF 100 ML IV PRN (18:28)
[2021-07-26] MEDS: MORPHINE SULFATE IN 0.9 % NACL 100 ML IV PRN (18:30)
[2021-07-27] VITALS (20 sets, daily range): BP systolic 93–148
[2021-07-27] MEDS: PROPOFOL DRIP 100 ML IV PRN (02:22)
[2021-07-27] MEDS ORDERED: DEXAMETHASONE SOD PHOSPHATE 10 MG/ML VIAL IVP SCH (03:00)
[2021-07-27] MEDS: ALBUTEROL MDI INHALATION 8 GM INH INH SCH ×6 (03:00→23:00)
[2021-07-27 07:51] LABS: BASOPHILS # (AUTO) 0.1 K/uL (0.0-0.2); BASOPHILS % (AUTO) 1.2 % (0.0-2.0); EOSINOPHILS % (AUTO) 0.5 % (0.0-4.0); HEMATOCRIT 32.7 % (36-54); HEMOGLOBIN 10.4 g/dL (14.0-18.0); LYMPHOCYTES # (AUTO) 0.4 K/uL (1.0-5.5); LYMPHOCYTES % (AUTO) 4.6 % (20.5-51.5); MEAN CORPUSCULAR HEMOGLOBIN 27 pg (27-31); MEAN CORPUSCULAR HGB CONC 32 % (32-36); MEAN CORPUSCULAR VOLUME 84 fL (79.0-98.0); MONOCYTES # (AUTO) 0.5 K/uL (0.0-1.0); MONOCYTES % (AUTO) 5.7 % (1.7-9.3); NEUTROPHILS # (AUTO) 8.2 K/uL (1.8-7.7); RED CELL DISTRIBUTION WIDTH 15.7 % (9.0-15.0); WHITE BLOOD COUNT (AUTO) 9.3 K/uL (4.8-10.8)
[2021-07-27 07:55] LABS: CALCIUM 8.4 mg/dL (8.4-11.0); CREATININE 1.48 mg/dL (0.55-1.30)
[2021-07-27] MEDS: CHOLECALCIFEROL (VITAMIN D3) 2,000 UNIT TABLET NG SCH (08:50)
[2021-07-27] MEDS: CALCIUM ACETATE 667 MG CAP PO SCH ×3 (08:50→18:35)
[2021-07-27] MEDS: DOCUSATE SODIUM 100 MG/10 ML UDC NG SCH ×2 (08:50→22:26)
[2021-07-27] MEDS: DOXYCYCLINE HYCLATE 100 MG CAPSULE PO SCH ×2 (08:51→22:27)
[2021-07-27] MEDS: ASCORBIC ACID 500 MG TABLET NG SCH ×2 (08:51→22:27)
[2021-07-27] MEDS: THEOPHYLLINE ANHYDROUS 80 MG/15 ML UDC NG SCH (08:51)
[2021-07-27 10:43] LABS: PLATELET COUNT (AUTO) 49 K/uL (130-430)
[2021-07-27] MEDS: METOCLOPRAMIDE HCL 10 MG/2 ML VIAL IVP SCH ×3 (13:06→18:30)
[2021-07-27] MEDS: PIPERACILLIN/TAZO 2.25G/DEX-IS 50 ML IV SCH ×3 (13:07→18:35)
[2021-07-27] MEDS: THEOPHYLLINE ANHYDROUS 200 MG CAP.ER.24H PO SCH ×2 (13:13→22:27)
[2021-07-27] MEDS ORDERED: 0.45% NACL 1,000 ML IV SCH ×2 (16:30→16:45)
[2021-07-27] MEDS: NACL 0.9% 1,000 ML IV SCH (20:45)
[2021-07-28] VITALS (26 sets, daily range): BP systolic 80–141
[2021-07-28] MEDS: PIPERACILLIN/TAZO 2.25G/DEX-IS 50 ML IV SCH ×4 (00:21→17:57)
[2021-07-28] MEDS: METOCLOPRAMIDE HCL 10 MG/2 ML VIAL IVP SCH ×4 (00:22→17:57)
[2021-07-28] MEDS: ALBUTEROL MDI INHALATION 8 GM INH INH SCH ×4 (03:00→20:34)
[2021-07-28] MEDS: DEXAMETHASONE SOD PHOSPHATE 10 MG/ML VIAL IVP SCH (03:00)
[2021-07-28] MEDS: THEOPHYLLINE ANHYDROUS 200 MG CAP.ER.24H PO SCH ×3 (06:00→21:44)
[2021-07-28] MEDS: DOCUSATE SODIUM 100 MG/10 ML UDC NG SCH ×2 (09:01→21:44)
[2021-07-28] MEDS: CALCIUM ACETATE 667 MG CAP PO SCH ×3 (09:01→17:57)
[2021-07-28] MEDS: DOXYCYCLINE HYCLATE 100 MG CAPSULE PO SCH ×2 (09:02→21:44)
[2021-07-28] MEDS: CHOLECALCIFEROL (VITAMIN D3) 2,000 UNIT TABLET NG SCH (09:02)
[2021-07-28] MEDS: ASCORBIC ACID 500 MG TABLET NG SCH ×2 (09:02→21:44)
[2021-07-28] MEDS ORDERED: D5W 1,000 ML IV SCH (17:45)
[2021-07-29] VITALS (25 sets, daily range): BP systolic 59–136
[2021-07-29] MEDS: PIPERACILLIN/TAZO 2.25G/DEX-IS 50 ML IV SCH ×3 (00:04→11:49)
[2021-07-29] MEDS: METOCLOPRAMIDE HCL 10 MG/2 ML VIAL IVP SCH ×4 (00:05→17:35)
[2021-07-29] MEDS: DEXAMETHASONE SOD PHOSPHATE 10 MG/ML VIAL IVP SCH (03:00)
[2021-07-29 06:15] LABS: BASOPHILS # (AUTO) 0.1 K/uL (0.0-0.2); BASOPHILS % (AUTO) 1.8 % (0.0-2.0); EOSINOPHILS # (AUTO) 0.1 K/uL (0.0-0.4); EOSINOPHILS % (AUTO) 1.8 % (0.0-4.0); HEMATOCRIT 31.9 % (36-54); HEMOGLOBIN 10.1 g/dL (14.0-18.0); LYMPHOCYTES # (AUTO) 0.7 K/uL (1.0-5.5); LYMPHOCYTES % (AUTO) 11.3 % (20.5-51.5); MEAN CORPUSCULAR HEMOGLOBIN 27 pg (27-31); MEAN CORPUSCULAR HGB CONC 32 % (32-36); MEAN CORPUSCULAR VOLUME 86 fL (79.0-98.0); MONOCYTES # (AUTO) 0.3 K/uL (0.0-1.0); MONOCYTES % (AUTO) 5.1 % (1.7-9.3); NEUTROPHILS # (AUTO) 4.6 K/uL (1.8-7.7); RED BLOOD CELL COUNT(AUTO) 3.73 MIL/uL (4.2-6.2); RED CELL DISTRIBUTION WIDTH 16.7 % (9.0-15.0); WHITE BLOOD COUNT (AUTO) 5.8 K/uL (4.8-10.8)
[2021-07-29 06:27] LABS: ALBUMIN 1.8 g/dL (3.4-4.8); CALCIUM 8.8 mg/dL (8.4-11.0); CREATININE 1.53 mg/dL (0.55-1.30); TOTAL BILIRUBIN 0.7 mg/dL (0.0-1.0)
[2021-07-29 07:02] LABS: PLATELET COUNT (AUTO) 34 K/uL (130-430)
[2021-07-29] MEDS: THEOPHYLLINE ANHYDROUS 200 MG CAP.ER.24H PO SCH (07:06)
[2021-07-29] MEDS: PROPOFOL DRIP 100 ML IV PRN (08:44)
[2021-07-29] MEDS ORDERED: VASOPRESSIN 100 UNITS in D5W 45 ML IV STA (08:57)
[2021-07-29] MEDS ORDERED: VASOPRESSIN 100 UNITS in D5W 45 ML IV PRN (09:00)
[2021-07-29] MEDS: CALCIUM ACETATE 667 MG CAP PO SCH ×3 (09:31→17:36)
[2021-07-29] MEDS: ASCORBIC ACID 500 MG TABLET NG SCH ×2 (09:32→21:03)
[2021-07-29] MEDS: DOXYCYCLINE HYCLATE 100 MG CAPSULE PO SCH (09:32)
[2021-07-29] MEDS: CHOLECALCIFEROL (VITAMIN D3) 2,000 UNIT TABLET NG SCH (09:32)
[2021-07-29] MEDS ORDERED: NOREPINEPHRINE BITARTRATE 32 MG in NS 218 ML IV PRN (09:40)
[2021-07-29] MEDS: ALBUMIN HUMAN 25% 50 ML IV SCH ×3 (10:03→17:36)
[2021-07-29] MEDS: DOCUSATE SODIUM 100 MG/10 ML UDC NG SCH ×2 (10:03→21:03)
[2021-07-29 11:02] LABS: POTASSIUM 2.5 mmol/L (3.5-5.1)
[2021-07-29] MEDS: THEOPHYLLINE ANHYDROUS 80 MG/15 ML UDC PO SCH ×2 (16:00→21:33)
[2021-07-29 16:26] LABS: CALCIUM 9.1 mg/dL (8.4-11.0); CREATININE 1.61 mg/dL (0.55-1.30); POTASSIUM 3.7 mmol/L (3.5-5.1)
[2021-07-29] MEDS: D5W 1,000 ML IV SCH (17:35)
[2021-07-29 20:09] LABS: BILIRUBIN,URINE NEGATIVE (NEGATIVE); BLOOD, URINE 2+ (NEGATIVE); CLARITY/URINE SL CLOUDY (CLEAR); COLOR,URINE YELLOW (YELLOW); GLUCOSE,URINE NEGATIVE (NEGATIVE); KETONES,URINE NEGATIVE (NEGATIVE); LEUKOCYTE ESTERASE ,URINE 2+ (NEGATIVE); NITRITE, URINE NEGATIVE (NEGATIVE); PH,URINE 5.5 (5.0-8.0); PROTEIN URINE TRACE (NEGATIVE)
[2021-07-29] MEDS: CEFEPIME 2 GM in D5W 100 ML IV SCH (21:03)
[2021-07-29 21:47] LABS: BACTERIA,URINE MODERATE /HPF (None Seen); RBC,URINE 20-50 /HPF (0-3); WBC,URINE 50-80 /HPF (0-3)
[2021-07-29 21:49] LABS: MUCUS,URINE None Seen /LPF (None Seen)
[2021-07-29 21:50] LABS: COARSE GRANULAR CASTS,URINE 0-10 /LPF (None Seen); FINE GRANULAR CASTS,URINE 0-10 /LPF (None Seen)
[2021-07-29 21:51] LABS: URINE AMORPHOUS URATE 2+ /HPF (None Seen)
[2021-07-30] VITALS (31 sets, daily range): BP systolic 80–146
[2021-07-30] MEDS: ALBUTEROL MDI INHALATION 8 GM INH INH SCH ×4 (00:15→15:00)
[2021-07-30] MEDS: DEXAMETHASONE SOD PHOSPHATE 10 MG/ML VIAL IVP SCH (05:08)
[2021-07-30] MEDS: D5W 1,000 ML IV SCH (05:08)
[2021-07-30 06:48] LABS: ALBUMIN 2.2 g/dL (3.4-4.8); CALCIUM 9.3 mg/dL (8.4-11.0); CREATININE 1.72 mg/dL (0.55-1.30); TOTAL BILIRUBIN 1.4 mg/dL (0.0-1.0)
[2021-07-30] MEDS: THEOPHYLLINE ANHYDROUS 80 MG/15 ML UDC PO SCH ×3 (06:53→22:00)
[2021-07-30] MEDS: METOCLOPRAMIDE HCL 10 MG/2 ML VIAL IVP SCH ×4 (06:53→18:31)
[2021-07-30 08:00] LABS: INR 1.2 (0.80-1.20); PROTHROMBIN TIME 12.5 SECS (9.5-12.5)
[2021-07-30 08:06] LABS: POTASSIUM 2.5 mmol/L (3.5-5.1)
[2021-07-30 08:52] LABS: BASOPHILS # (AUTO) 0.1 K/uL (0.0-0.2); BASOPHILS % (AUTO) 1.1 % (0.0-2.0); EOSINOPHILS # (AUTO) 0.2 K/uL (0.0-0.4); EOSINOPHILS % (AUTO) 2.2 % (0.0-4.0); HEMOGLOBIN 10.8 g/dL (14.0-18.0); LYMPHOCYTES # (AUTO) 1.2 K/uL (1.0-5.5); LYMPHOCYTES % (AUTO) 11.6 % (20.5-51.5); MEAN CORPUSCULAR HEMOGLOBIN 27 pg (27-31); MEAN CORPUSCULAR HGB CONC 32 % (32-36); MEAN CORPUSCULAR VOLUME 85 fL (79.0-98.0); MONOCYTES # (AUTO) 0.7 K/uL (0.0-1.0); MONOCYTES % (AUTO) 6.5 % (1.7-9.3); NEUTROPHILS % (AUTO) 78.6 % (40.0-70.0); RED BLOOD CELL COUNT(AUTO) 3.99 MIL/uL (4.2-6.2); RED CELL DISTRIBUTION WIDTH 16.9 % (9.0-15.0)
[2021-07-30] MEDS: CALCIUM ACETATE 667 MG CAP PO SCH ×3 (09:55→18:31)
[2021-07-30] MEDS: DOCUSATE SODIUM 100 MG/10 ML UDC NG SCH ×2 (10:07→21:57)
[2021-07-30] MEDS: CHOLECALCIFEROL (VITAMIN D3) 2,000 UNIT TABLET NG SCH (10:08)
[2021-07-30] MEDS: ASCORBIC ACID 500 MG TABLET NG SCH ×2 (10:09→21:57)
[2021-07-30] MEDS: CEFEPIME 2 GM in D5W 100 ML IV SCH ×2 (10:14→21:57)
[2021-07-30 10:58] LABS: WHITE BLOOD COUNT (AUTO) 10.2 K/uL (4.8-10.8)
[2021-07-30 13:42] LABS: PLATELET COUNT (AUTO) 39 K/uL (130-430)
[2021-07-30] MEDS ORDERED: KCL 40 mEq in 100 mL (PREMIX) 100 ML IV ONE (15:00)
[2021-07-30] MEDS ORDERED: KCL 20 mEq in 100 mL (PREMIX) 100 ML IV ONE (19:00)
[2021-07-30] MEDS ORDERED: APIXABAN 2.5 MG TABLET PO SCH (21:00)
[2021-07-31] VITALS (32 sets, daily range): BP systolic 77–168
[2021-07-31] MEDS: METOCLOPRAMIDE HCL 10 MG/2 ML VIAL IVP SCH ×4 (00:05→18:56)
[2021-07-31] MEDS: D5W 1,000 ML IV SCH ×5 (00:10→21:51)
[2021-07-31] MEDS: DEXAMETHASONE SOD PHOSPHATE 10 MG/ML VIAL IVP SCH (05:37)
[2021-07-31] MEDS: THEOPHYLLINE ANHYDROUS 80 MG/15 ML UDC PO SCH ×3 (06:38→22:52)
[2021-07-31 07:26] LABS: BASOPHILS # (AUTO) 0.2 K/uL (0.0-0.2); BASOPHILS % (AUTO) 1.1 % (0.0-2.0); EOSINOPHILS # (AUTO) 0.3 K/uL (0.0-0.4); EOSINOPHILS % (AUTO) 1.8 % (0.0-4.0); HEMATOCRIT 33.5 % (36-54); HEMOGLOBIN 10.6 g/dL (14.0-18.0); LYMPHOCYTES # (AUTO) 1.3 K/uL (1.0-5.5); LYMPHOCYTES % (AUTO) 9.1 % (20.5-51.5); MEAN CORPUSCULAR HEMOGLOBIN 27 pg (27-31); MEAN CORPUSCULAR HGB CONC 32 % (32-36); MEAN CORPUSCULAR VOLUME 85 fL (79.0-98.0); MONOCYTES # (AUTO) 0.8 K/uL (0.0-1.0); MONOCYTES % (AUTO) 5.3 % (1.7-9.3); NEUTROPHILS # (AUTO) 12.2 K/uL (1.8-7.7); NEUTROPHILS % (AUTO) 82.7 % (40.0-70.0); RED BLOOD CELL COUNT(AUTO) 3.94 MIL/uL (4.2-6.2); WHITE BLOOD COUNT (AUTO) 14.8 K/uL (4.8-10.8)
[2021-07-31 08:38] LABS: PLATELET COUNT (AUTO) 34 K/uL (130-430)
[2021-07-31] MEDS: DOCUSATE SODIUM 100 MG/10 ML UDC NG SCH ×2 (08:43→21:51)
[2021-07-31] MEDS: CALCIUM ACETATE 667 MG CAP PO SCH ×3 (08:45→18:56)
[2021-07-31] MEDS: CEFEPIME 2 GM in D5W 100 ML IV SCH ×2 (08:45→21:48)
[2021-07-31] MEDS: ASCORBIC ACID 500 MG TABLET NG SCH ×2 (08:45→21:50)
[2021-07-31] MEDS: CHOLECALCIFEROL (VITAMIN D3) 2,000 UNIT TABLET NG SCH (08:46)
[2021-07-31] MEDS: ALBUTEROL MDI INHALATION 8 GM INH INH SCH ×5 (08:49→23:48)
[2021-07-31 09:34] LABS: POTASSIUM 3.6 mmol/L (3.5-5.1)
[2021-07-31 09:37] LABS: CALCIUM 9.6 mg/dL (8.4-11.0); CREATININE 2.01 mg/dL (0.55-1.30)
[2021-07-31] MEDS ORDERED: MORPHINE 2 MG/ML INJ. SYRINGE IVP PRN (10:00)
[2021-07-31] MEDS ORDERED: NALOXONE HCL 0.4 MG/ML AMP (NARCAN) IVP PRN (10:00)
[2021-07-31] MEDS ORDERED: LORazepam 2 MG/ML VIAL IVP PRN (10:00)
[2021-08-01] VITALS (17 sets, daily range): BP systolic 106–128
[2021-08-01] MEDS: METOCLOPRAMIDE HCL 10 MG/2 ML VIAL IVP SCH ×3 (00:44→12:58)
[2021-08-01] MEDS: ALBUTEROL MDI INHALATION 8 GM INH INH SCH ×3 (03:50→11:50)
[2021-08-01] MEDS: DEXAMETHASONE SOD PHOSPHATE 10 MG/ML VIAL IVP SCH (04:24)
[2021-08-01] MEDS: D5W 1,000 ML IV SCH ×2 (04:25→09:33)
[2021-08-01 05:39] LABS: BASOPHILS # (AUTO) 0.1 K/uL (0.0-0.2); BASOPHILS % (AUTO) 0.3 % (0.0-2.0); HEMATOCRIT 32.1 % (36-54); HEMOGLOBIN 10.1 g/dL (14.0-18.0); LYMPHOCYTES # (AUTO) 0.9 K/uL (1.0-5.5); MEAN CORPUSCULAR HEMOGLOBIN 27 pg (27-31); MEAN CORPUSCULAR HGB CONC 32 % (32-36); MEAN CORPUSCULAR VOLUME 86 fL (79.0-98.0); MONOCYTES # (AUTO) 1.1 K/uL (0.0-1.0); MONOCYTES % (AUTO) 5.1 % (1.7-9.3); NEUTROPHILS # (AUTO) 19.5 K/uL (1.8-7.7); RED BLOOD CELL COUNT(AUTO) 3.74 MIL/uL (4.2-6.2); RED CELL DISTRIBUTION WIDTH 17.4 % (9.0-15.0); WHITE BLOOD COUNT (AUTO) 21.6 K/uL (4.8-10.8)
[2021-08-01 06:07] LABS: CALCIUM 9.7 mg/dL (8.4-11.0); CREATININE 2.27 mg/dL (0.55-1.30); POTASSIUM 4.8 mmol/L (3.5-5.1); TOTAL BILIRUBIN 0.7 mg/dL (0.0-1.0)
[2021-08-01] MEDS: THEOPHYLLINE ANHYDROUS 80 MG/15 ML UDC PO SCH (07:04)
[2021-08-01] MEDS: CALCIUM ACETATE 667 MG CAP PO SCH ×2 (08:00→12:58)
[2021-08-01 08:07] LABS: PLATELET COUNT (AUTO) 28 K/uL (130-430)
[2021-08-01 08:36] LABS: INR 1.2 (0.80-1.20)
[2021-08-01] MEDS: CEFEPIME 2 GM in D5W 100 ML IV SCH (09:29)
[2021-08-01] MEDS: DOCUSATE SODIUM 100 MG/10 ML UDC NG SCH (09:29)
[2021-08-01] MEDS: ASCORBIC ACID 500 MG TABLET NG SCH (09:33)
[2021-08-01] MEDS: CHOLECALCIFEROL (VITAMIN D3) 2,000 UNIT TABLET NG SCH (09:33)
[2021-08-01] MEDS ORDERED: LORazepam 2 MG/ML VIAL IVP PRN (14:30)
[2021-08-01 15:38] LABS: NEUTROPHILS % (AUTO) 90.6 % (40.0-70.0)
== END 2021-08-01 15:35 | DRG 870 ==
LOC: SED 14:41 → STU 19:17 → SIC 07-12 19:33
PROVIDERS: ADMIT Internal Medicine Hospice and Palliative Medicine; ATTEND Internal Medicine Hospice and Palliative Medicine
PROC: 5A0935A Assistance with Respiratory Ventilation, Less than 24 Consecutive Hours, High Flow/Velocity Cannula (ICD-10-PCS; 2021-07-11)
PROC: 5A1955Z Respiratory Ventilation, Greater than 96 Consecutive Hours (ICD-10-PCS; 2021-07-12)
PROC: 0BH17EZ Insertion of Endotracheal Airway into Trachea, Via Natural or Artificial Opening (ICD-10-PCS; 2021-07-12)
PROC: XW033E5 Introduction of Remdesivir Anti-infective into Peripheral Vein, Percutaneous Approach, New Technology Group 5 (ICD-10-PCS; 2021-07-12)
PROC: XW033H5 Introduction of Tocilizumab into Peripheral Vein, Percutaneous Approach, New Technology Group 5 (ICD-10-PCS; 2021-07-13)
PROC: 02HV33Z Insertion of Infusion Device into Superior Vena Cava, Percutaneous Approach (ICD-10-PCS; 2021-07-15)
PROC: B548ZZA Ultrasonography of Superior Vena Cava, Guidance (ICD-10-PCS; 2021-07-15)
PROC: 30233R1 Transfusion of Nonautologous Platelets into Peripheral Vein, Percutaneous Approach (ICD-10-PCS; principal; 2021-07-30)
DX: A41.9 Sepsis, unspecified organism (principal); U07.1 COVID-19; G93.41 Metabolic encephalopathy; J12.82 Pneumonia due to coronavirus disease 2019; J96.01 Acute respiratory failure with hypoxia; N17.0 Acute kidney failure with tubular necrosis; I60.9 Nontraumatic subarachnoid hemorrhage, unspecified; Z99.11 Dependence on respirator [ventilator] status; D69.6 Thrombocytopenia, unspecified; J45.909 Unspecified asthma, uncomplicated; I12.9 Hypertensive chronic kidney disease with stage 1 through stage 4 chronic kidney disease, or unspecified chronic kidney disease; D64.9 Anemia, unspecified; E11.22 Type 2 diabetes mellitus with diabetic chronic kidney disease; N18.9 Chronic kidney disease, unspecified; E83.39 Other disorders of phosphorus metabolism; E87.5 Hyperkalemia; Z79.01 Long term (current) use of anticoagulants
CPT/HCPCS: 36415; 36600; 70450-TC; 71045; 71275; 76376; 80048; 80053; 80198; 80307; 81000; 81003; 82550; 82553; 82728; 82803-TC; 82962; 83605; 83615; 83690; 83735; 83880; 84100; 84484; 85025; 85379; 85384; 85610-TC; 85730-TC; 86022; 86140; 86900; 86901; 87040; 87070-TC; 87081; 87086; 87205-TC; 93005; 93971; 94003; 94640; 94760; 96365; 96367; 99291; G0378; G0480; G0481; J0330; J0456; J0692; J0696; J1100; J1940; J2060; J2270; J2543; J2704; J2765; J3262; J3480; J3490; J7050; J7060; P9034; P9046; Q9967; U0003